=== PATIENT | male | born 1965 | race Caucasian/White ===

== ENCOUNTER 2016-12-30 18:18 | Emergency (ER) | payer BC ==
[~2016-12-30] VITALS: Ht 172.7 cm; Wt 86.2 kg
[2016-12-30 18:18] VITALS: BP 148/86; PULSE 95; RESP 16; TEMP 98.2; O2SAT 100
--- NOTE | 2016-12-30 18:18 | NUR ---
PLACED IN BED 6, BIB SQ61, PT WAS GIVEN 2 NTG S/L WITH NO RELIEF, PT STATES HE HAD SUDDEN ONSET OF CP WHILE DRIVING. ALSO C/O SOB. WEAKNESS
--- NOTE | 2016-12-30 18:25 | NUR ---
MANUEL Kim at bedside examining patient.
--- NOTE | 2016-12-30 18:30 | NUR ---
Pt c/o chest pain and SOB bib CF. Pt denies significant med hx. Pt given O2 NC 2L. Pt reports ease in resp effort. Cp unresolved w/NTG x 2 by EMS. Pt reports taking Ajit 81 mg x 4 this AM for chest pain .
[2016-12-30] MEDS ORDERED: NITROGLYCERIN 0.4 MG TAB.SUBL SL ONE ×2 (19:14→19:15)
[2016-12-30] MEDS ORDERED: ASPIRIN 81 MG TAB.CHEW PO ONE (19:15)
[2016-12-30 19:18] LABS: BASOPHILS % (AUTO) 0.4 % (0.0-2.0); EOSINOPHILS # (AUTO) 0.1 K/uL (0.0-0.4); HEMATOCRIT 45.1 % (36-54); LYMPHOCYTES # (AUTO) 1.8 K/uL (1.0-5.5); LYMPHOCYTES % (AUTO) 28.5 % (20.5-51.5); MEAN CORPUSCULAR HEMOGLOBIN 30 pg (27-31); MEAN CORPUSCULAR HGB CONC 33 % (32-36); MEAN CORPUSCULAR VOLUME 90 fL (79.0-98.0); MONOCYTES # (AUTO) 0.6 K/uL (0.0-1.0); MONOCYTES % (AUTO) 8.7 % (1.7-9.3); NEUTROPHILS # (AUTO) 3.8 K/uL (1.8-7.7); NEUTROPHILS % (AUTO) 61.4 % (40.0-70.0); PLATELET COUNT (AUTO) 255 K/uL (130-430); RED BLOOD CELL COUNT(AUTO) 5.03 MIL/uL (4.2-6.2); RED CELL DISTRIBUTION WIDTH 12.6 % (9.0-15.0); WHITE BLOOD COUNT (AUTO) 6.3 K/uL (4.8-10.8)
[2016-12-30 19:28] LABS: CALCIUM 8.6 mg/dL (8.4-11.0); CREATININE 1.43 mg/dL (0.55-1.30); POTASSIUM 4.1 mmol/L (3.5-5.1)
[2016-12-30 19:31] LABS: PROTHROMBIN TIME 10.9 SECS (9.5-12.5)
[2016-12-30 19:34] LABS: ALBUMIN 3.8 g/dL (3.4-4.8); TOTAL BILIRUBIN 0.3 mg/dL (0.0-1.0); TOTAL PROTEIN, SERUM 7.2 g/dL (6.4-8.3)
--- NOTE | 2016-12-30 19:39 | NUR ---
Endorsed pt from [facility]. Pt is in stable condition. Pt states that he still has chest pain 04/11.
--- NOTE | 2016-12-30 19:58 | NUR ---
Pt stated that pain has decreased w/ 2 tabs of nitro.
--- NOTE | 2016-12-30 20:53 | NUR ---
ER at bedside examining patient.
[2016-12-30] MEDS ORDERED: LORazepam 2 MG/ML VIAL (FOR ER USE) IVP ONE (21:00)
[2016-12-30] MEDS ORDERED: KETOROLAC TROMETHAMINE 30 MG VIAL IVP ONE (21:00)
[2016-12-30 21:57] VITALS: BP 127/87; PULSE 73; RESP 22; TEMP 98.9; O2SAT 98
--- NOTE | 2016-12-30 21:57 | NUR ---
Patient given written and verbal discharge instructions and verbalizes understanding. ER MD Dr. Ross discussed with patient the results and treatment provided. Patient in stable condition. ID arm band removed. IV catheter removed intact and dressing applied, no active bleeding. Rx of Ibuprofen 800 and norco 5-325 given. Patient educated on pain management and to follow up with PMD. Pain Scale 2/10. Opportunity for questions provided and answered.
== END 2016-12-30 21:57 | disposition home or self-care (01) ==
LOC: SED 18:18
DX: R07.89 Other chest pain (principal)
CPT/HCPCS: 36415; 71010; 80053; 84484; 85025; 85610; 85730; 93005; 96374; 99285; J1885; J2060